=== PATIENT | female | born 1945 | race Caucasian/White ===

== ENCOUNTER → 2017-02-27 | Outpatient (CLI) | payer OTHER, MEDICARE ==
[~2017-02-27] MED LIST: ACYCLOVIR 400400 MG PO; MAGOX 400400 MG PO; PROTONIX40 M3 PO; SIMVASTATIN40 MG PO; TUMS PO; VITAMIN D2000 UNIT PO
--- NOTE | ~2017-02-27 | EKG ---
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
== END | disposition home or self-care (01) ==
LOC: LITH 12:11
DX: N20.0 Calculus of kidney (principal); Z90.49 Acquired absence of other specified parts of digestive tract; Z90.710 Acquired absence of both cervix and uterus; Z98.890 Other specified postprocedural states
CPT/HCPCS: 70015